=== PATIENT | male | born 1935 | race Caucasian/White ===

== ENCOUNTER 2020-09-14 19:19 | Emergency (ER) | payer MEDICARE, BC ==
[2020-09-14 19:53] LABS: EOS % 0.2 % (0.0-4.0); HEMOGLOBIN 13.9 g/dL (13.5-18.0); LYMPH# 0.5 (1.50-4.00); MEAN CELL VOLUME 90 fl (78-100); MEAN CORPUSCULAR HEMOGLOBIN 30 pg (27-31); MEAN CORPUSCULAR HGB CONC 33 g/dL (33-37); MEAN PLATELET VOLUME 10.2 fl (7.4-10.4); NEU # 3.8 (1.40-6.50); PLATELET COUNT 142 K/mm3 (130-400); RED BLOOD COUNT 4.66 M/mm3 (4.20-5.60); RED CELL DISTRIBUTION WIDTH 13.1 % (11.5-14.5); WHITE BLOOD COUNT 4.9 K/mm3 (4.8-10.8)
[2020-09-14 19:54] LABS: MONO # 0.5 (0.20-0.80)
[2020-09-14 20:02] LABS: ALBUMIN 3.7 g/dL (3.4-4.8)
[2020-09-14 20:03] LABS: POTASSIUM 3.9 mmol/L (3.5-5.1); SODIUM 139 mmol/L (136-145)
[2020-09-14 20:04] LABS: CALCIUM 8.3 mg/dL (8.3-10.5)
[2020-09-14 20:05] LABS: GLUCOSE 123 mg/dL (75-110); TOTAL PROTEIN 6.7 g/dL (6.2-8.1)
[2020-09-14 20:06] LABS: CARBON DIOXIDE 26 mmol/L (23-31)
[2020-09-14 20:07] LABS: TOTAL BILIRUBIN 0.4 mg/dL (0.2-1.2)
[2020-09-14 20:10] LABS: AST-SGOT 66 U/L (5-34)
[2020-09-14 20:12] LABS: ALT/SGPT 57 U/L (0-55)
[2020-09-14 20:18] LABS: TROPONIN-I < 0.03 ng/mL (<0.030)
[2020-09-14 20:42] LABS: URINE APPEARANCE CLOUDY; URINE COLOR YELLOW; URINE PROTEIN(semi-quant) 1+ mg/dL (NEGATIVE)
[2020-09-14 20:43] LABS: URINE BILIRUBIN NEGATIVE (NEGATIVE); URINE BLOOD 50 ery/uL (NEGATIVE); URINE GLUCOSE NEGATIVE (NEGATIVE); URINE KETONE NEGATIVE (NEGATIVE); URINE LEUKOCYTE ESTERASE NEGATIVE (NEGATIVE); URINE NITRATE NEGATIVE (NEGATIVE); URINE UROBILINOGEN NORMAL (NORMAL)
[2020-09-14 21:39] LABS: D-DIMER > 35.00 mg/L FEU (0.15-0.50)
[2020-09-14 22:46] VITALS: BP 152/77
[2020-09-14 22:48] LABS: PARTIAL THROMBOPLASTIN TIME 22.2 SECONDS (21.0-32.0); PROTHROMBIN TIME 10.4 SECONDS (9.0-12.0)
== END 2020-09-14 22:46 | disposition short-term general hospital (02) ==
LOC: ED 19:19 → EDBD 19:44 → ED 22:46
PROVIDERS: Nurse Practitioner Family
DX: U07.1 COVID-19 (principal); R41.82 Altered mental status, unspecified; R53.1 Weakness; R32 Unspecified urinary incontinence; R40.2422 Glasgow coma scale score 9-12, at arrival to emergency department; R06.02 Shortness of breath
CPT/HCPCS: J0456; J1100; J1644; J7030; J7050; Q9967

== ENCOUNTER 2020-09-17 11:00 | Inpatient (IN) | payer MEDICARE, BC ==
[2020-09-17] MEDS ORDERED: DECADRON6 M1 PO (13:03)
[2020-09-17] MEDS ORDERED: DOXYCYCLINE MO100 M3 PO (13:03)
[2020-09-17] MEDS ORDERED: TYLENOL 325MG325 MG PO (13:04)
[2020-09-17] MEDS ORDERED: ROBITUSSIN COU237 M2 PO (13:04)
[2020-09-17] MEDS ORDERED: ELIQUIS5 MG PO (13:06)
[2020-09-17] MEDS ORDERED: NORCO 325 MG-7.1 TA1 PO (13:06)
[2020-09-17] MEDS ORDERED: SIMVASTATIN40 M1 PO (13:06)
[2020-09-17 15:22] VITALS: BP 129/83
[2020-09-18 06:15] VITALS: BP 146/79
[2020-09-18 08:20] LABS: EOS % 0.1 % (0.0-4.0); HEMATOCRIT 40.7 % (42.0-52.0); HEMOGLOBIN 13.5 g/dL (13.5-18.0); LYMPH# 0.8 (1.50-4.00); MEAN CELL VOLUME 90 fl (78-100); MEAN CORPUSCULAR HEMOGLOBIN 30 pg (27-31); MEAN CORPUSCULAR HGB CONC 33 g/dL (33-37); MEAN PLATELET VOLUME 10.1 fl (7.4-10.4); MONO # 0.7 (0.20-0.80); NEU # 5.2 (1.40-6.50); PLATELET COUNT 256 K/mm3 (130-400); RED BLOOD COUNT 4.55 M/mm3 (4.20-5.60); RED CELL DISTRIBUTION WIDTH 13.3 % (11.5-14.5); WHITE BLOOD COUNT 6.8 K/mm3 (4.8-10.8)
[2020-09-18 08:24] LABS: ALBUMIN 3.2 g/dL (3.4-4.8); POTASSIUM 4.1 mmol/L (3.5-5.1)
[2020-09-18 08:25] LABS: CALCIUM 8.1 mg/dL (8.3-10.5)
[2020-09-18 08:28] LABS: TOTAL BILIRUBIN 0.5 mg/dL (0.2-1.2)
[2020-09-18 13:09] LABS: URINE APPEARANCE HAZY; URINE BILIRUBIN NEGATIVE (NEGATIVE); URINE BLOOD 250 ery/uL (NEGATIVE); URINE COLOR AMBER; URINE GLUCOSE NEGATIVE (NEGATIVE); URINE KETONE NEGATIVE (NEGATIVE); URINE LEUKOCYTE ESTERASE NEGATIVE (NEGATIVE); URINE NITRATE NEGATIVE (NEGATIVE); URINE PROTEIN(semi-quant) NEGATIVE (NEGATIVE); URINE UROBILINOGEN NORMAL (NORMAL); URINE WBC 0-1 /hpf (0-3)
[2020-09-18 17:16] VITALS: BP 120/52
[2020-09-19 05:57] VITALS: BP 129/71
[2020-09-19 17:32] VITALS: BP 133/64
[2020-09-20 06:07] VITALS: BP 140/83
[2020-09-20 18:02] VITALS: BP 132/66
[2020-09-21 06:42] VITALS: BP 143/70
[2020-09-21 17:14] VITALS: BP 133/67
[2020-09-22 05:54] VITALS: BP 160/83
[2020-09-22 17:27] VITALS: BP 109/62
[2020-09-23 05:30] VITALS: BP 175/63
[2020-09-23 17:04] VITALS: BP 123/66
[2020-09-24 05:36] VITALS: BP 104/58
[2020-09-24 17:20] VITALS: BP 156/74
[2020-09-25 05:30] VITALS: BP 103/41
[2020-09-25 18:14] VITALS: BP 127/75
[2020-09-26 06:24] VITALS: BP 121/76
[2020-09-26 15:15] VITALS: BP 93/57
[2020-09-27 05:33] VITALS: BP 103/65
[2020-09-27 09:14] LABS: ALBUMIN 3.1 g/dL (3.4-4.8); POTASSIUM 3.9 mmol/L (3.5-5.1)
[2020-09-27 09:15] LABS: CALCIUM 8.6 mg/dL (8.3-10.5)
[2020-09-27 09:16] LABS: HEMATOCRIT 37.8 % (42.0-52.0); HEMOGLOBIN 12.2 g/dL (13.5-18.0); MEAN CELL VOLUME 90 fl (78-100); MEAN CORPUSCULAR HEMOGLOBIN 29 pg (27-31); MEAN CORPUSCULAR HGB CONC 32 g/dL (33-37); MEAN PLATELET VOLUME 9.5 fl (7.4-10.4); PLATELET COUNT 493 K/mm3 (130-400); RED BLOOD COUNT 4.22 M/mm3 (4.20-5.60); RED CELL DISTRIBUTION WIDTH 13.6 % (11.5-14.5); WHITE BLOOD COUNT 7.4 K/mm3 (4.8-10.8)
[2020-09-27 09:18] LABS: TOTAL BILIRUBIN 0.5 mg/dL (0.2-1.2)
[2020-09-27 09:33] LABS: LYMPHOCYTE 10 % (20-51); MONOCYTE 8 % (3-10); NEUTROPHILS 81 % (42-75)
[2020-09-27 10:03] LABS: ERYTHROCYTE SEDIMENTATION RATE 36 mm/hr (0-20)
[2020-09-27 17:52] VITALS: BP 101/62
[2020-09-27 22:39] LABS: TESTOSTERONE 53 ng/dL (221-716)
[2020-09-28 06:01] VITALS: BP 109/70
[2020-09-28 18:37] VITALS: BP 100/64
[2020-09-29 06:02] VITALS: BP 120/71
[2020-09-29 17:28] VITALS: BP 114/69
[2020-09-30 05:21] VITALS: BP 118/68
[2020-09-30 17:12] VITALS: BP 99/64
[2020-10-01 06:03] VITALS: BP 105/63
[2020-10-01 18:09] VITALS: BP 110/72
[2020-10-02 06:17] VITALS: BP 107/69
[2020-10-02 17:20] VITALS: BP 113/72
[2020-10-03 02:39] LABS: URINE COLOR YELLOW
[2020-10-03 02:40] LABS: URINE APPEARANCE CLEAR; URINE BILIRUBIN NEGATIVE (NEGATIVE); URINE BLOOD NEGATIVE (NEGATIVE); URINE GLUCOSE NEGATIVE (NEGATIVE); URINE KETONE NEGATIVE (NEGATIVE); URINE LEUKOCYTE ESTERASE NEGATIVE (NEGATIVE); URINE MUCUS PRESENT (NOT PRESENT); URINE NITRATE NEGATIVE (NEGATIVE); URINE PROTEIN(semi-quant) TRACE mg/dL (NEGATIVE); URINE UROBILINOGEN NORMAL (NORMAL); URINE WBC 0-1 /hpf (0-3)
[2020-10-03 06:22] VITALS: BP 102/60
[2020-10-03 18:16] VITALS: BP 102/62
[2020-10-04 05:42] VITALS: BP 118/70
[2020-10-04 17:34] VITALS: BP 121/65
[2020-10-05 06:05] VITALS: BP 136/81
[2020-10-05 10:36] VITALS: BP 111/70
[2020-10-05 13:18] LABS: URINE APPEARANCE HAZY; URINE BILIRUBIN NEGATIVE (NEGATIVE); URINE BLOOD TRACE (NEGATIVE); URINE COLOR YELLOW; URINE GLUCOSE NEGATIVE (NEGATIVE); URINE KETONE NEGATIVE (NEGATIVE); URINE NITRATE NEGATIVE (NEGATIVE); URINE PROTEIN(semi-quant) TRACE mg/dL (NEGATIVE); URINE UROBILINOGEN NORMAL (NORMAL)
[2020-10-05 13:19] LABS: URINE LEUKOCYTE ESTERASE TRACE (NEGATIVE); URINE MUCUS PRESENT (NOT PRESENT)
[2020-10-05 17:47] VITALS: BP 109/72
[2020-10-06 05:58] VITALS: BP 102/65
[2020-10-06] MEDS ORDERED: ELIQUIS5 MG PO (09:55)
[2020-10-06] MEDS ORDERED: VITAMIN C500 MG PO (09:56)
[2020-10-06] MEDS ORDERED: MELATIN 3 MG-11 TAB PO (09:56)
[2020-10-06] MEDS ORDERED: VITAMIN D21250 MC1 PO (09:56)
[2020-10-06 12:03] LABS: FOLLICLE STIMULATING HORMONE 53.5
[2020-10-06 12:04] LABS: LUTENIZING HORMONE 18.6; PROLACTIN AMS 14.3
== END 2020-10-06 13:32 | DRG 177 ==
LOC: MED/SURG 11:00
PROVIDERS: Family Medicine; Internal Medicine; ADMIT Nurse Practitioner
DX: U07.1 COVID-19 (principal); I26.99 Other pulmonary embolism without acute cor pulmonale; E23.0 Hypopituitarism; F03.90 Unspecified dementia, unspecified severity, without behavioral disturbance, psychotic disturbance, mood disturbance, and anxiety; R53.81 Other malaise; Z66 Do not resuscitate; Z79.01 Long term (current) use of anticoagulants; Z79.891 Long term (current) use of opiate analgesic
CPT/HCPCS: J1071

== ENCOUNTER → 2020-10-24 | Outpatient (CLI) | payer MEDICARE, BC ==
[2020-10-06 05:58] VITALS: BP 102/65
[~2020-10-24] MED LIST: DECADRON6 M1 PO; DOXYCYCLINE MO100 M3 PO; ELIQUIS5 MG PO; MELATIN 3 MG-11 TAB PO; NORCO 325 MG-7.1 TA1 PO; ROBITUSSIN COU237 M2 PO; SIMVASTATIN40 M1 PO; TYLENOL 325MG325 MG PO; VITAMIN C500 MG PO; VITAMIN D21250 MC1 PO
[2020-10-25 07:00] LABS: URINE APPEARANCE CLOUDY; URINE BILIRUBIN NEGATIVE (NEGATIVE); URINE BLOOD NEGATIVE (NEGATIVE); URINE COLOR YELLOW; URINE GLUCOSE NEGATIVE (NEGATIVE); URINE KETONE NEGATIVE (NEGATIVE); URINE LEUKOCYTE ESTERASE NEGATIVE (NEGATIVE); URINE NITRATE NEGATIVE (NEGATIVE); URINE PROTEIN(semi-quant) NEGATIVE (NEGATIVE); URINE UROBILINOGEN NORMAL (NORMAL)
== END ==
LOC: LAB 18:20
PROVIDERS: Family Medicine
DX: R41.82 Altered mental status, unspecified (principal)

== ENCOUNTER → 2021-06-23 | Outpatient (CLI) | payer MEDICARE, BC | LOC: VAS 13:49 → RAD 13:49 | DX: M79.89 Other specified soft tissue disorders (principal) ==

== ENCOUNTER 2021-12-03 17:07 | Emergency (ER) | payer MEDICARE, BC ==
[~2021-12-03] VITALS: Ht 170.2 cm; Wt 70.7 kg
[2021-12-03] MEDS ORDERED: NEURONTIN300 MG/CAP PO (17:18)
[2021-12-03] MEDS ORDERED: CLARAVIS10 MG PO (18:20)
[2021-12-03] MEDS ORDERED: CELEXA 20MG20 MG/TA1 PO (18:20)
[2021-12-03] MEDS ORDERED: MELATIN 3 MG-11 TAB PO (18:21)
[2021-12-03] MEDS ORDERED: MIRALAX17 GM PO (18:24)
[2021-12-03] MEDS ORDERED: MULTIPLE VITAMI1 TA1 PO (18:25)
[2021-12-03 18:48] LABS: BASO # 0.03 K/mm3 (0.02-0.10); EOS # 0.18 K/mm3 (0.04-0.40); EOS % 3.5 % (0.0-4.0); HEMATOCRIT 37.5 % (42.0-52.0); HEMOGLOBIN 12.1 g/dL (13.5-18.0); LYMPH# 1.31 K/mm3 (1.50-4.00); MEAN CELL VOLUME 93 fl (78-100); MEAN CORPUSCULAR HEMOGLOBIN 30 pg (27-31); MEAN CORPUSCULAR HGB CONC 32 g/dL (33-37); MONO # 0.49 K/mm3 (0.20-0.80); NEU # 3.13 K/mm3 (1.40-6.50); PLATELET COUNT 324 K/mm3 (130-400); RED BLOOD COUNT 4.02 M/mm3 (4.20-5.60); RED CELL DISTRIBUTION WIDTH 14.3 % (11.5-14.5); WHITE BLOOD COUNT 5.2 K/mm3 (4.8-10.8)
[2021-12-03 18:50] LABS: POTASSIUM 4.4 mmol/L (3.5-5.1)
[2021-12-03 19:25] LABS: URINE APPEARANCE CLEAR; URINE COLOR YELLOW
[2021-12-03 19:26] LABS: URINE BILIRUBIN NEGATIVE (NEGATIVE); URINE BLOOD NEGATIVE (NEGATIVE); URINE GLUCOSE NEGATIVE (NEGATIVE); URINE KETONE NEGATIVE (NEGATIVE); URINE LEUKOCYTE ESTERASE NEGATIVE (NEGATIVE); URINE NITRATE NEGATIVE (NEGATIVE); URINE PROTEIN(semi-quant) NEGATIVE (NEGATIVE); URINE UROBILINOGEN NORMAL (NORMAL); URINE WBC 0-1 /hpf (0-3)
[2021-12-03 22:06] VITALS: BP 143/91
== END 2021-12-03 22:07 | disposition home or self-care (01) ==
LOC: ED 17:07
PROVIDERS: Family Medicine
DX: S00.03XA Contusion of scalp, initial encounter (principal); F03.90 Unspecified dementia, unspecified severity, without behavioral disturbance, psychotic disturbance, mood disturbance, and anxiety; W19.XXXA Unspecified fall, initial encounter; Y92.129 Unspecified place in nursing home as the place of occurrence of the external cause